=== PATIENT | female | born 1955 | race Caucasian/White ===

== ENCOUNTER 2019-12-28 20:24 | Observation (INO) | payer MEDICARE ==
[~2019-12-28] VITALS: Ht 152.4 cm; Wt 52.5 kg
[2019-12-28 20:44] LABS: BASO # 0.1 x10^3/uL (0.0-0.2); BASO % 1 % (0-3); EOS # 0.1 x10^3/uL (0.0-0.7); EOS % 1 % (0-3); HEMATOCRIT 26.5 % (36.0-47.0); HEMOGLOBIN 8.8 g/dL (12.0-15.5); LYMPH # 1.7 x10^3/uL (1.0-4.8); LYMPH % 16 % (24-48); MEAN CORPUSCULAR HEMOGLOBIN 28 pg (25-35); MEAN CORPUSCULAR HGB CONC 33 g/dL (31-37); MEAN CORPUSCULAR VOLUME 85 fL (79-100); MONO % 9 % (0-9); NEUT # 7.9 x10^3/uL (1.8-7.7); NEUT % 74 % (31-73); PLATELET COUNT 267 x10^3/uL (140-400); RED BLOOD COUNT 3.12 x10^6/uL (3.50-5.40); RED CELL DISTRIBUTION WIDTH 17.4 % (11.5-14.5); WHITE BLOOD COUNT 10.7 x10^3/uL (4.0-11.0)
[2019-12-28 20:50] LABS: CALCIUM 8.4 mg/dL (8.5-10.1); CREATININE 0.8 mg/dL (0.6-1.0); GFR 72.7; POTASSIUM 3.3 mmol/L (3.5-5.1)
--- NOTE | 2019-12-28 20:50 | PHYS DOC ---
General Adult EDM: Chief Complaint: CHEST PAIN HPI: HPI: The history was obtained from the patient. Patient is a 64-year-old female with PMH hypertension who presents with a chief complaint of chest pain. Patient states she is had intermittent chest pain throughout the day. States this episode started 1 hour prior to arrival and is been constant. States the pain is substernal in nature. States it is sharp and nonradiating. She states is made worse when she breathes in. She did take home nitroglycerin as well as nitroglycerin from EMS which did help. She does note some associated shortness of breath but denies any diaphoresis. Denies syncope. Notes a year ago she was hospitalized for chest pain [id number]. States heart catheterization was not performed. She has no heart disease in her mother and father at a young age. Denies any history of blood clot. Denies any swelling to the lower extremities. Denies fevers or cough. Denies known exposure to coronavirus. Does state occasionally she does get chest pressure with ambulation. No other complaints. Review of Systems: Review of Systems: Constitutional: Denies fever or chills. [] Eyes: Denies change in visual acuity. [] HENT: Denies nasal congestion or sore throat. [] Respiratory: Denies cough or shortness of breath. [] Cardiovascular: Positive for chest pain GI: Denies abdominal pain, nausea, vomiting, bloody stools or diarrhea. [] : Denies dysuria. [] Musculoskeletal: Denies back pain or joint pain. [] Integument: Denies rash. [] Neurologic: Denies headache, focal weakness or sensory changes. [] Endocrine: Denies polyuria or polydipsia. [] Lymphatic: Denies swollen glands. [] Psychiatric: Denies depression or anxiety. [] Heart Score: HEART Score for Chest Pain: HEART Score for Chest Pain Response (Comments) Value History Moderately Suspicious 1 ECG Nonspecific Repolarizatio 1 Age >45 - < 65 1 Risk Factors 1 or 2 Risk Factors 1 Troponin < Normal Limit 0 Total 4 Risk Factors: Risk Factors: DM, Current or recent (<one month) smoker, HTN, HLP, family history of CAD, obesity. Risk Scores: Score 0 - 3: 2.5% MACE over next 6 weeks - Discharge Home Score 4 - 6: 20.3% MACE over next 6 weeks - Admit for Clinical Observation Score 7 - 10: 72.7% MACE over next 6 weeks - Early Invasive Strategies Physical Exam: PE: Constitutional: Well developed, well nourished, no acute distress, non-toxic appearance. [] HENT: Normocephalic, atraumatic, bilateral external ears normal, oropharynx moist, no oral exudates, nose normal. [] Eyes: PERRLA, EOMI, conjunctiva normal, no discharge. [] Neck: Normal range of motion, no tenderness, supple, no stridor. [] Cardiovascular:Heart rate regular rhythm, no murmur [] Lungs & Thorax: Bilateral breath sounds clear to auscultation [] Abdomen: soft, no tenderness, no masses, no pulsatile masses. [] Skin: Warm, dry, no erythema, no rash. [] Back: No tenderness, no CVA tenderness. [] Extremities: No tenderness, no cyanosis, no clubbing, ROM intact, no edema. [] Neurologic: Alert and oriented X 3, normal motor function, normal sensory function, no focal deficits noted. [] Psychologic: Affect normal, judgement normal, mood normal. [] Current Patient Data: Labs: Laboratory Tests Test 12/28/19 20:33 White Blood Count 10.7 x10^3/uL (4.0-11.0) Red Blood Count 3.12 x10^6/uL (3.50-5.40) L Hemoglobin 8.8 g/dL (12.0-15.5) L Hematocrit 26.5 % (36.0-47.0) L Mean Corpuscular Volume 85 fL (79-100) Mean Corpuscular Hemoglobin 28 pg (25-35) Mean Corpuscular Hemoglobin Concent 33 g/dL (31-37) Red Cell Distribution Width 17.4 % (11.5-14.5) H Platelet Count 267 x10^3/uL (140-400) Neutrophils (%) (Auto) 74 % (31-73) H Lymphocytes (%) (Auto) 16 % (24-48) L Monocytes (%) (Auto) 9 % (0-9) Eosinophils (%) (Auto) 1 % (0-3) Basophils (%) (Auto) 1 % (0-3) Neutrophils # (Auto) 7.9 x10^3/uL (1.8-7.7) H Lymphocytes # (Auto) 1.7 x10^3/uL (1.0-4.8) Monocytes # (Auto) 1.0 x10^3/uL (0.0-1.1) Eosinophils # (Auto) 0.1 x10^3/uL (0.0-0.7) Basophils # (Auto) 0.1 x10^3/uL (0.0-0.2) Laboratory Tests 12/28/19 20:33 Vital Signs: Vital Signs Date Time Temp Pulse Resp B/P (MAP) Pulse Ox O2 Delivery O2 Flow Rate FiO2 12/28/19 20:25 98.6 94 14 113/66 (82) 96 Room Air 98.6 EKG: EKG: [] EKG consistent with normal sinus rhythm. Ventricular rate of 97 bpm. Bradley normal. Intervals normal. No acute ischemic changes noted. Radiology/Procedures: Radiology/Procedures: [facility] [address] [place], [place] [id number] IMAGING REPORT Signed PATIENT: MARIA GUADALUPE COTE LACCOUNT: [id number] : 1955 LOCATION: ER AGE: 64 SEX: F EXAM STATUS: REG ER ORD. PHYSICIAN: KAYE CARPIO DO REASON: CP. concern for PE PROCEDURE: CT ANGIOGRAPHY CHEST Exam: CT of chest with contrast INDICATION: Chest pain TECHNIQUE: Sequential axial images through the chest obtained following the administration of 90 mL of Isovue-370 IV contrast. Sagittal and coronal reformatted images were reconstructed from the axial data and reviewed. Comparisons: Chest x-ray same day FINDINGS: Visual is portions of the thyroid are unremarkable. No enlarged mediastinal lymph nodes are identified. Heart size is normal. No pericardial effusion. Thoracic aorta has a normal course and caliber. Pulmonary artery is not enlarged. No pulmonary embolus identified within the main, lobar or segmental pulmonary arteries. Airways are patent. No consolidation or pneumothorax. Tree-in-bud nodularity noted in the right upper lobe. Mild centrilobular emphysematous changes noted at the lung apices. No pleural effusion or thickening. Visualized upper abdomen is unremarkable. No suspicious osseous lesions or acute fractures. IMPRESSION: No pulmonary embolus identified within the main, lobar or segmental pulmonary arteries. Exposure: One or more of the following in the visualized dose reduction techniques were utilized for this examination: 1. Automated exposure control 2. Adjustment of the MA and/or KV according to patient size 3. Use of iterative of reconstructive technique Electronically signed by: Bertha Becker MD (12/28/2019 9:35 PM) [id number] DICTATED and SIGNED BY: BERTHA BECKER MD DATE: 12/28/192134 [] Course & Med Decision Making: Course & Med Decision Making Pertinent Labs and Imaging studies reviewed. (See chart for details) [] Patient is a 64-year-old female who presents with chief complaint of sudden onset chest pain that began 1 hour prior to arrival. Initial EKG without acute ischemic changes. She does note a history of chest pain approximate 1 year ago that was evaluated by cardiology [id number]. She states however she is never had a heart catheterization. CBC notable for hemoglobin of 8.8. No previous for comparison. She shows no signs of hemodynamic instability. Troponin negative. CT PE study negative. I am concerned the patient has a moderate risk heart score. I do feel she would benefit from hospitalization. Patient is agreeable to this. Her pain did get significant improvement with nitroglycerin administered by EMS. She was given fentanyl in the emergency department and has been chest pain-free. Appropriate for hospitalization at this time. Dragon Disclaimer: Dragon Disclaimer: This electronic medical record was generated, in whole or in part, using a voice recognition dictation system. Departure Departure Impression: Primary Impression: Chest pain Qualified Codes: R07.9 - Chest pain, unspecified Additional Impressions: Hypertension Qualified Codes: I10 - Essential (primary) hypertension Tobacco abuse Anemia Qualified Codes: D64.9 - Anemia, unspecified Disposition: ADMITTED INPATIENT Condition: STABLE Justicifation of Admission Dx: Justifications for Admission: Justification of Admission Dx: Yes KAYE CARPIO DO Dec 28, 2019 20:50
--- NOTE | 2019-12-28 20:57 | RAD ---
Exam: Chest one view INDICATION: Chest pain TECHNIQUE: Frontal view of the chest Comparisons: None FINDINGS: The cardiomediastinal silhouette and pulmonary vessels are within normal limits. The lung and pleural spaces are clear. IMPRESSION: No acute cardiopulmonary process. Electronically signed by: Vira Bernal MD (12/28/2019 8:55 PM) [id number]
[2019-12-28 20:59] LABS: ALBUMIN 3.2 g/dL (3.4-5.0); ALBUMIN/GLOBULIN RATIO 1.1 (1.0-1.7); TOTAL BILIRUBIN 0.1 mg/dL (0.2-1.0); TOTAL PROTEIN 6.1 g/dL (6.4-8.2)
[2019-12-28] MEDS ORDERED: IOHEXOL 350 MG/ML 100 ML VIAL. IV ONE (21:15)
[2019-12-28] MEDS ORDERED: CONTRAST GIVEN. MC PRN (21:15)
--- NOTE | 2019-12-28 21:37 | RAD ---
Exam: CT of chest with contrast INDICATION: Chest pain TECHNIQUE: Sequential axial images through the chest obtained following the administration of 90 mL of Isovue-370 IV contrast. Sagittal and coronal reformatted images were reconstructed from the axial data and reviewed. Comparisons: Chest x-ray same day FINDINGS: Visual is portions of the thyroid are unremarkable. No enlarged mediastinal lymph nodes are identified. Heart size is normal. No pericardial effusion. Thoracic aorta has a normal course and caliber. Pulmonary artery is not enlarged. No pulmonary embolus identified within the main, lobar or segmental pulmonary arteries. Airways are patent. No consolidation or pneumothorax. Tree-in-bud nodularity noted in the right upper lobe. Mild centrilobular emphysematous changes noted at the lung apices. No pleural effusion or thickening. Visualized upper abdomen is unremarkable. No suspicious osseous lesions or acute fractures. IMPRESSION: No pulmonary embolus identified within the main, lobar or segmental pulmonary arteries. Exposure: One or more of the following in the visualized dose reduction techniques were utilized for this examination: 1. Automated exposure control 2. Adjustment of the MA and/or KV according to patient size 3. Use of iterative of reconstructive technique Electronically signed by: Vira Bernal MD (12/28/2019 9:35 PM) [id number]
[2019-12-28] MEDS ORDERED: MORPHINE SULFATE 2 MG/ML VIAL. IV PRN (22:00)
[2019-12-28] MEDS ORDERED: fentaNYL PF VIAL 100 MCG/2 ML VIAL IVP ONE (22:00)
[2019-12-28] MEDS ORDERED: ONDANSETRON PF 4 MG/2 ML VIAL. IV PRN (22:00)
[2019-12-29 01:00] VITALS: BP 100/54
--- NOTE | 2019-12-29 01:02 | EKG ---
[facility] [address] [place] [address] Test Date: 2019-12-28 Test Time: 20:28:03 Pat Name: MARIA GUADALUPE COTE Department: Room: 261 1 Gender: F Sql Programmer Analyst: AADLGISA : 1955 Requested By: KAYE CARPIO Order Number: [id number] Reading MD: Efren Minaya MD Measurements Intervals [place] Rate: 97 P: 52 MT: 152 QRS: 67 QRSD: 86 T: 52 QT: 358 QTc: 459 Interpretive Statements SR EARLY RBBB Electronically Signed On 12-29-2019 10:23:40 CDT by Efren Minaya MD
[2019-12-29 01:15] LABS: BASO # 0.1 x10^3/uL (0.0-0.2); BASO % 1 % (0-3); EOS # 0.1 x10^3/uL (0.0-0.7); EOS % 1 % (0-3); HEMATOCRIT 29.3 % (36.0-47.0); HEMOGLOBIN 9.6 g/dL (12.0-15.5); LYMPH # 1.6 x10^3/uL (1.0-4.8); LYMPH % 16 % (24-48); MEAN CORPUSCULAR HEMOGLOBIN 28 pg (25-35); MEAN CORPUSCULAR HGB CONC 33 g/dL (31-37); MEAN CORPUSCULAR VOLUME 85 fL (79-100); MONO # 0.7 x10^3/uL (0.0-1.1); MONO % 7 % (0-9); NEUT # 7.5 x10^3/uL (1.8-7.7); NEUT % 75 % (31-73); PLATELET COUNT 263 x10^3/uL (140-400); RED BLOOD COUNT 3.43 x10^6/uL (3.50-5.40); RED CELL DISTRIBUTION WIDTH 17.5 % (11.5-14.5)
[2019-12-29] MEDS ORDERED: LYSI500T8 PO (01:20)
[2019-12-29 01:33] LABS: CALCIUM 8.4 mg/dL (8.5-10.1); CREATININE 0.8 mg/dL (0.6-1.0); GFR 72.7; POTASSIUM 3.6 mmol/L (3.5-5.1)
[2019-12-29] MEDS: ACETAMINOPHEN 325 MG TABLET. PO PRN ×2 (01:50→10:06)
[2019-12-29] MEDS ORDERED: DIPH50CA PO (02:24)
[2019-12-29 03:02] VITALS: BP 102/56
[2019-12-29 07:00] VITALS: BP 115/68
[2019-12-29] MEDS ORDERED: ONDANSETRON PF 4 MG/2 ML VIAL. IV PRN (07:15)
[2019-12-29] MEDS ORDERED: NITROGLYCERIN SUBLINGUAL 0.4 MG BOTTLE OF 25. SL PRN (07:15)
[2019-12-29] MEDS ORDERED: ASPIRIN 325 MG TABLET PO SCH (08:00)
--- NOTE | 2019-12-29 08:13 | PDOC1 ---
History and Physical Date of Admission Date of Admission DATE: 12/29/19 TIME: 08:13 Identification/Chief Complaint Chief Complaint Chest pain Source Source: Patient History of Present Illness History of Present Illness Patient 64-year-old female with past medical history of former alcohol abuse, stomach ulcer secondary to gastric bypass, presents with complaints of sudden onset substernal chest pain that began last night. Patient reports sharp chest pain, 5/10, that began 20 minutes after eating dinner consisting of fish sticks. Patient does note a history of "heart attack ", seen at a [facility] and treated with medical management. She denies any history of cardiac stent placement. Patient denies improvement in her symptoms with her home nitroglycerin last night. Patient currently denies any chest pain. States she is a former alcoholic and still drinks very infrequently, her last drink being a shot of alcohol with her granddaughter 3 days ago. She denies any shortness of breath or diaphoresis. Past Medical History Past Medical History Hypertension, COPD, GERD, stomach ulcers Past Surgical History Past Surgical History Gastric bypass, section, appendectomy, left cataract surgery Past Surgical History: Family History Family History Coronary artery disease Social History Smoke: 1 pack per day (Current every day smoker) ALCOHOL: occassional (Former alcoholic) Drugs: None Current Problem List Problem List Problems Medical Problems: (1) Anemia Status: Acute (2) Chest pain Status: Acute (3) Hypertension Status: Acute (4) Tobacco abuse Status: Acute Current Medications Current Medications Current Medications Iohexol (Omnipaque 350 Mg/ml) 90 ml 1X ONCE IV Last administered on 12/28/19at 21:15; Start 12/28/19 at 21:15; Stop 12/28/19 at 21:16; Status DC Info (CONTRAST GIVEN -- Rx MONITORING) 1 each PRN DAILY PRN MC SEE COMMENTS; Start 12/28/19 at 21:15; Stop 12/30/19 at 21:14 Fentanyl Citrate (Fentanyl 2ml Vial) 50 mcg 1X ONCE IVP Last administered on 12/28/19at 22:01; Start 12/28/19 at 22:00; Stop 12/28/19 at 22:07; Status DC Ondansetron HCl (Zofran) 4 mg PRN Q8HRS PRN IV NAUSEA/VOMITING Last administere d on 12/29/19at 01:50; Start 12/28/19 at 22:00; Stop 12/29/19 at 07:05; Status DC Morphine Sulfate (Morphine Sulfate) 2 mg PRN Q2HR PRN IV PAIN; Start 12/28/19 at 22:00 Acetaminophen (Tylenol) 650 mg PRN Q6HRS PRN PO HEADACHE Last administered on 12/29/19at 01:50; Start 12/29/19 at 01:45 Influenza Virus Vaccine Quadrival (Fluzone Quad Syringe) 0.5 ml ONCE ONCE VAX IM ; Start 12/29/19 at 09:00; Stop 12/29/19 at 09:01 Ondansetron HCl (Zofran) 4 mg PRN Q4HRS PRN IV NAUSEA/VOMITING; Start 12/29/19 at 07:15 Diphenhydramine HCl (Benadryl) 50 mg QHS PO ; Start 12/29/19 at 21:00 Non-Formulary Medication (Lysine (L-Lysine)) 1 tab DAILY PO ; Start 12/29/19 at 09:00; Status UNV Aspirin (Kemi Aspirin) 325 mg DAILYWBKFT PO ; Start 12/29/19 at 08:00 Nitroglycerin (Nitrostat) 0.4 mg PRN Q5MIN PRN SL CHEST PAIN; Start 12/29/19 at 07:15 Active Scripts Active Reported Diphenhydramine Hcl 50 Mg Capsule 1 Cap PO QHS L-Lysine (Lysine) 500 Mg Tablet 1 Tab PO DAILY 30 Days Allergies Allergies: Coded Allergies: acetaminophen (Verified Allergy, Unknown, 12/28/19) butalbital (Verified Allergy, Unknown, 12/28/19) caffeine (Verified Allergy, Unknown, 12/28/19) codeine (Verified Allergy, Unknown, 12/28/19) ketorolac (Verified Allergy, Unknown, 12/28/19) nifedipine (Verified Allergy, Unknown, 12/28/19) propranolol (Verified Allergy, Unknown, 12/28/19) ROS Review of System GENERAL: No history of weight change, weakness or fevers. SKIN: No bruising, hair changes or rashes. EYES: No blurred, double or loss of vision. NOSE AND THROAT: No history of nosebleeds, hoarseness or sore throat. HEART: Chest pain. Denies palpitations. LUNGS: Shortness of breath. Denies hemoptysis, wheezing or shortness of breath. GASTROINTESTINAL: Denies nausea, vomiting, abdominal pain. GENITOURINARY: Denies dysuria, frequency, urgency, hematuria. NEUROLOGIC: Denies history of numbness, tingling, tremor or weakness. PSYCHIATRIC: Denies anxiety, denies depression. ENDOCRINE: No history of heat or cold intolerance, polyuria or polydipsia. EXTREMITIES: Denies muscle weakness, joint pain, pain on walking or stiffness. Physical Exam Physical Exam General: Alert, Oriented X3, Cooperative, No acute distress HEENT: PERRLA, EOMI Lungs: Clear to auscultation, Normal air movement Heart: RRR, no murmurs Cardiovascular: S1, S2 Abdomen: Normal bowel sounds, Soft, No tenderness Extremities: No clubbing, No cyanosis Skin: No rashes, No significant lesion Neuro: Normal speech, Normal tone, Sensation intact Psych/Mental Status: Mental status NL, Mood NL Vitals Vitals Vital Signs Date Time Temp Pulse Resp B/P (MAP) Pulse Ox O2 Delivery O2 Flow Rate FiO2 12/29/19 03:02 98.1 105 19 102/56 (71) 98 Room Air 98.1 Labs Labs Laboratory Tests Test 12/28/19 20:33 12/29/19 00:58 White Blood Count 10.7 x10^3/uL (4.0-11.0) 10.0 x10^3/uL (4.0-11.0) Red Blood Count 3.12 x10^6/uL (3.50-5.40) 3.43 x10^6/uL (3.50-5.40) Hemoglobin 8.8 g/dL (12.0-15.5) 9.6 g/dL (12.0-15.5) Hematocrit 26.5 % (36.0-47.0) 29.3 % (36.0-47.0) Mean Corpuscular Volume 85 fL (79-100) 85 fL (79-100) Mean Corpuscular Hemoglobin 28 pg (25-35) 28 pg (25-35) Mean Corpuscular Hemoglobin Concent 33 g/dL (31-37) 33 g/dL (31-37) Red Cell Distribution Width 17.4 % (11.5-14.5) 17.5 % (11.5-14.5) Platelet Count 267 x10^3/uL (140-400) 263 x10^3/uL (140-400) Neutrophils (%) (Auto) 74 % (31-73) 75 % (31-73) Lymphocytes (%) (Auto) 16 % (24-48) 16 % (24-48) Monocytes (%) (Auto) 9 % (0-9) 7 % (0-9) Eosinophils (%) (Auto) 1 % (0-3) 1 % (0-3) Basophils (%) (Auto) 1 % (0-3) 1 % (0-3) Neutrophils # (Auto) 7.9 x10^3/uL (1.8-7.7) 7.5 x10^3/uL (1.8-7.7) Lymphocytes # (Auto) 1.7 x10^3/uL (1.0-4.8) 1.6 x10^3/uL (1.0-4.8) Monocytes # (Auto) 1.0 x10^3/uL (0.0-1.1) 0.7 x10^3/uL (0.0-1.1) Eosinophils # (Auto) 0.1 x10^3/uL (0.0-0.7) 0.1 x10^3/uL (0.0-0.7) Basophils # (Auto) 0.1 x10^3/uL (0.0-0.2) 0.1 x10^3/uL (0.0-0.2) Sodium Level 140 mmol/L (136-145) 140 mmol/L (136-145) Potassium Level 3.3 mmol/L (3.5-5.1) 3.6 mmol/L (3.5-5.1) Chloride Level 105 mmol/L (98-107) 106 mmol/L (98-107) Carbon Dioxide Level 24 mmol/L (21-32) 25 mmol/L (21-32) Anion Gap 11 (6-14) 9 (6-14) Blood Urea Nitrogen 11 mg/dL (7-20) 10 mg/dL (7-20) Creatinine 0.8 mg/dL (0.6-1.0) 0.8 mg/dL (0.6-1.0) Estimated GFR (Cockcroft-Gault) 72.7 72.7 BUN/Creatinine Ratio 14 (6-20) Glucose Level 95 mg/dL (70-99) 119 mg/dL (70-99) Calcium Level 8.4 mg/dL (8.5-10.1) 8.4 mg/dL (8.5-10.1) Total Bilirubin 0.1 mg/dL (0.2-1.0) Aspartate Amino Transf (AST/SGOT) 21 U/L (15-37) Alanine Aminotransferase (ALT/SGPT) 14 U/L (14-59) Alkaline Phosphatase 103 U/L (46-116) Troponin I Quantitative < 0.017 ng/mL (0.000-0.055) < 0.017 ng/mL (0.000-0.055) JT-Fxm-K-Type Natriuretic Peptide 230 pg/mL (0-124) Total Protein 6.1 g/dL (6.4-8.2) Albumin 3.2 g/dL (3.4-5.0) Albumin/Globulin Ratio 1.1 (1.0-1.7) Lipase 122 U/L (73-393) Magnesium Level 2.1 mg/dL (1.8-2.4) Laboratory Tests Test 12/28/19 20:33 12/29/19 00:58 White Blood Count 10.7 x10^3/uL (4.0-11.0) 10.0 x10^3/uL (4.0-11.0) Red Blood Count 3.12 x10^6/uL (3.50-5.40) 3.43 x10^6/uL (3.50-5.40) Hemoglobin 8.8 g/dL (12.0-15.5) 9.6 g/dL (12.0-15.5) Hematocrit 26.5 % (36.0-47.0) 29.3 % (36.0-47.0) Mean Corpuscular Volume 85 fL (79-100) 85 fL (79-100) Mean Corpuscular Hemoglobin 28 pg (25-35) 28 pg (25-35) Mean Corpuscular Hemoglobin Concent 33 g/dL (31-37) 33 g/dL (31-37) Red Cell Distribution Width 17.4 % (11.5-14.5) 17.5 % (11.5-14.5) Platelet Count 267 x10^3/uL (140-400) 263 x10^3/uL (140-400) Neutrophils (%) (Auto) 74 % (31-73) 75 % (31-73) Lymphocytes (%) (Auto) 16 % (24-48) 16 % (24-48) Monocytes (%) (Auto) 9 % (0-9) 7 % (0-9) Eosinophils (%) (Auto) 1 % (0-3) 1 % (0-3) Basophils (%) (Auto) 1 % (0-3) 1 % (0-3) Neutrophils # (Auto) 7.9 x10^3/uL (1.8-7.7) 7.5 x10^3/uL (1.8-7.7) Lymphocytes # (Auto) 1.7 x10^3/uL (1.0-4.8) 1.6 x10^3/uL (1.0-4.8) Monocytes # (Auto) 1.0 x10^3/uL (0.0-1.1) 0.7 x10^3/uL (0.0-1.1) Eosinophils # (Auto) 0.1 x10^3/uL (0.0-0.7) 0.1 x10^3/uL (0.0-0.7) Basophils # (Auto) 0.1 x10^3/uL (0.0-0.2) 0.1 x10^3/uL (0.0-0.2) Sodium Level 140 mmol/L (136-145) 140 mmol/L (136-145) Potassium Level 3.3 mmol/L (3.5-5.1) 3.6 mmol/L (3.5-5.1) Chloride Level 105 mmol/L (98-107) 106 mmol/L (98-107) Carbon Dioxide Level 24 mmol/L (21-32) 25 mmol/L (21-32) Anion Gap 11 (6-14) 9 (6-14) Blood Urea Nitrogen 11 mg/dL (7-20) 10 mg/dL (7-20) Creatinine 0.8 mg/dL (0.6-1.0) 0.8 mg/dL (0.6-1.0) Estimated GFR (Cockcroft-Gault) 72.7 72.7 BUN/Creatinine Ratio 14 (6-20) Glucose Level 95 mg/dL (70-99) 119 mg/dL (70-99) Calcium Level 8.4 mg/dL (8.5-10.1) 8.4 mg/dL (8.5-10.1) Total Bilirubin 0.1 mg/dL (0.2-1.0) Aspartate Amino Transf (AST/SGOT) 21 U/L (15-37) Alanine Aminotransferase (ALT/SGPT) 14 U/L (14-59) Alkaline Phosphatase 103 U/L (46-116) Troponin I Quantitative < 0.017 ng/mL (0.000-0.055) < 0.017 ng/mL (0.000-0.055) MW-Oqn-B-Type Natriuretic Peptide 230 pg/mL (0-124) Total Protein 6.1 g/dL (6.4-8.2) Albumin 3.2 g/dL (3.4-5.0) Albumin/Globulin Ratio 1.1 (1.0-1.7) Lipase 122 U/L (73-393) Magnesium Level 2.1 mg/dL (1.8-2.4) Images Images Exam: Chest one view INDICATION: Chest pain TECHNIQUE: Frontal view of the chest Comparisons: None FINDINGS: The cardiomediastinal silhouette and pulmonary vessels are within normal limits. The lung and pleural spaces are clear. IMPRESSION: No acute cardiopulmonary process. Exam: CT of chest with contrast INDICATION: Chest pain TECHNIQUE: Sequential axial images through the chest obtained following the administration of 90 mL of Isovue-370 IV contrast. Sagittal and coronal reformatted images were reconstructed from the axial data and reviewed. Comparisons: Chest x-ray same day FINDINGS: Visual is portions of the thyroid are unremarkable. No enlarged mediastinal lymph nodes are identified. Heart size is normal. No pericardial effusion. Thoracic aorta has a normal course and caliber. Pulmonary artery is not enlarged. No pulmonary embolus identified within the main, lobar or segmental pulmonary arteries. Airways are patent. No consolidation or pneumothorax. Tree-in-bud nodularity noted in the right upper lobe. Mild centrilobular emphysematous changes noted at the lung apices. No pleural effusion or thickening. Visualized upper abdomen is unremarkable. No suspicious osseous lesions or acute fractures. IMPRESSION: No pulmonary embolus identified within the main, lobar or segmental pulmonary arteries. VTE Prophylaxis Ordered VTE Prophylaxis Devices: Yes VTE Pharmacological Prophylaxi: No Assessment/Plan Assessment/Plan Chest pain ACS Plan: Trend troponins. Troponins x 2 undetectable. Echocardiogram showed ejection fraction of 50 to 55% with normal left ventricular wall motion. Suspect her pain was secondary to GERD or chronic pancreatic insufficiency. Recommend patient discharge with close PCP follow-up. Morphine and nitroglycerin as needed for pain. Chest x-ray unremarkable. CTA chest negative for PE. Discussed with cardiology. FEN - Cardiac diet PPX - compression devices FULL CODE Dispo - inpatient for above Justifications for Admission Other Justification SHANTA CROCKETT MD Dec 29, 2019 08:13
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
[2019-12-29] MEDS ORDERED: NON FORMULARY ITEM (Lysine (L-Lysine) 1 TAB) PO SCH (09:00)
[2019-12-29] MEDS ORDERED: FLU VACC QS 2020-21(6MOS+)/PF 0.5 ML SYRINGE. VAX IM ONE (09:00)
[2019-12-29] MEDS ORDERED: POTASSIUM CHLORIDE 20 MEQ TABLET.ER. PO ONE (09:45)
--- NOTE | 2019-12-29 09:47 | CARD ---
MR#: [id number] Date of Study: 12/29/2019 Ordering Physician: SHANTA CROCKETT, Referring Physician: SHANTA CROCKETT, Tech: Sofia Holguin RDCS APPROVED REPORT EXAM: Two-dimensional and M-mode echocardiogram with Doppler and color Doppler. Other Information Quality : Fair INDICATION Chest Pain 2D DIMENSIONS RVDd2.3 (2.9-3.5cm)Left Atrium(2D)2.3 (1.6-4.0cm) IVSd0.7 (0.7-1.1cm)Aortic Root(2D)2.8 (2.0-3.7cm) LVDd4.6 (3.9-5.9cm)LVOT Diameter2.0 (1.8-2.4cm) PWd0.7 (0.7-1.1cm)LVDs3.4 (2.5-4.0cm) FS (%) 25.4 %SV47.7 ml LVEF(%)50.2 (>50%) Aortic Valve AoV Peak Anton.149.1cm/sAoV VTI26.0cm AO Peak GR.8.9mmHgLVOT Peak Anton.106.8cm/s LVOT VTI 19.33cmAO Mean GR.4mmHg MARGARITA (VMAX)2.94zv6EAY (VTI)2.39cm2 AI P 1/2 Gcgo012px Mitral Valve MV E Ezpshgqz31.0cm/sMV DECEL [id number] MV A Fzfwfhqv82.6cm/sMV NSE64dp E/A Ratio1.0MVA (PHT)3.78cm2 TDI E/Lateral E'5.1E/Medial E'8.6 Tricuspid Valve TR P. Otzukijt635zh/sRAP SZCABRMQ4egGu TR Peak Gr.67vpSxJFIS86abBc Pulmonary Vein S1 Cgcggrzt57.7cm/sD2 Awettdef67.6cm/s LEFT VENTRICLE The left ventricle is normal size. There is normal left ventricular wall thickness. Left ventricle sy stolic function is low normal. The Ejection Fraction is 50-55%. There is normal LV segmental wall mot ion. The left ventricular diastolic function and filling is normal for age. RIGHT VENTRICLE The right ventricle is normal size. The right ventricular systolic function is normal. ATRIA The left atrium size is normal. The right atrium size is normal. The interatrial septum is intact wit h no evidence for an atrial septal defect or patent foramen ovale as noted on 2-D or Doppler imaging. AORTIC VALVE The aortic valve is calcified but opens well. Doppler and Color Flow revealed mild aortic regurgitati on. There is no significant aortic valvular stenosis. MITRAL VALVE The mitral valve is calcified but opens well. There is no evidence of mitral valve prolapse. There is no mitral valve stenosis. Doppler and Color-flow revealed trace mitral regurgitation. TRICUSPID VALVE The tricuspid valve is normal in structure and function. Doppler and Color Flow revealed physiologica l tricuspid regurgitation. The PA pressure was estimated at 32 mmHg. There is no tricuspid valve sten osis. PULMONIC VALVE The pulmonic valve is not well visualized. Doppler and Color Flow revealed no pulmonic valvular regur gitation. There is no pulmonic valvular stenosis. GREAT VESSELS The aortic root is normal in size. The ascending aorta is not well seen. The IVC is normal in size an d collapses >50% with inspiration. PERICARDIAL EFFUSION There is no evidence of significant pericardial effusion. Critical Notification Critical Value: No <Conclusion> Left ventricle systolic function is low normal. The Ejection Fraction is 50-55%. There is normal LV segmental wall motion. Doppler and Color Flow revealed mild aortic regurgitation. Signed by : Efren Minaya, Electronically Approved : 12/29/2019 09:46:49
[2019-12-29 10:28] LABS: CHOLESTEROL/HDL RATIO 2.9
--- NOTE | 2019-12-29 10:42 | PDOC3 ---
Discharge Summary Visit Information Date of Admission: Dec 29, 2019 Date of Discharge: Dec 29, 2019 Final Diagnosis Problems Medical Problems: (1) Anemia Status: Acute (2) Chest pain Status: Acute (3) Hypertension Status: Acute (4) Tobacco abuse Status: Acute Brief Hospital Course Allergies Allergies Coded Allergies Type Severity Reaction Last Updated Verified acetaminophen Allergy Unknown 12/28/19 Yes butalbital Allergy Unknown 12/28/19 Yes caffeine Allergy Unknown 12/28/19 Yes codeine Allergy Unknown 12/28/19 Yes ketorolac Allergy Unknown 12/28/19 Yes nifedipine Allergy Unknown 12/28/19 Yes propranolol Allergy Unknown 12/28/19 Yes Vital Signs Vital Signs Date Time Temp Pulse Resp B/P (MAP) Pulse Ox O2 Delivery O2 Flow Rate FiO2 12/29/19 03:02 98.1 105 19 102/56 (71) 98 Room Air 98.1 Lab Results Laboratory Tests Test 12/28/19 20:33 12/29/19 00:58 12/29/19 09:34 White Blood Count 10.7 x10^3/uL (4.0-11.0) 10.0 x10^3/uL (4.0-11.0) Red Blood Count 3.12 x10^6/uL (3.50-5.40) 3.43 x10^6/uL (3.50-5.40) Hemoglobin 8.8 g/dL (12.0-15.5) 9.6 g/dL (12.0-15.5) Hematocrit 26.5 % (36.0-47.0) 29.3 % (36.0-47.0) Mean Corpuscular Volume 85 fL (79-100) 85 fL (79-100) Mean Corpuscular Hemoglobin 28 pg (25-35) 28 pg (25-35) Mean Corpuscular Hemoglobin Concent 33 g/dL (31-37) 33 g/dL (31-37) Red Cell Distribution Width 17.4 % (11.5-14.5) 17.5 % (11.5-14.5) Platelet Count 267 x10^3/uL (140-400) 263 x10^3/uL (140-400) Neutrophils (%) (Auto) 74 % (31-73) 75 % (31-73) Lymphocytes (%) (Auto) 16 % (24-48) 16 % (24-48) Monocytes (%) (Auto) 9 % (0-9) 7 % (0-9) Eosinophils (%) (Auto) 1 % (0-3) 1 % (0-3) Basophils (%) (Auto) 1 % (0-3) 1 % (0-3) Neutrophils # (Auto) 7.9 x10^3/uL (1.8-7.7) 7.5 x10^3/uL (1.8-7.7) Lymphocytes # (Auto) 1.7 x10^3/uL (1.0-4.8) 1.6 x10^3/uL (1.0-4.8) Monocytes # (Auto) 1.0 x10^3/uL (0.0-1.1) 0.7 x10^3/uL (0.0-1.1) Eosinophils # (Auto) 0.1 x10^3/uL (0.0-0.7) 0.1 x10^3/uL (0.0-0.7) Basophils # (Auto) 0.1 x10^3/uL (0.0-0.2) 0.1 x10^3/uL (0.0-0.2) Sodium Level 140 mmol/L (136-145) 140 mmol/L (136-145) Potassium Level 3.3 mmol/L (3.5-5.1) 3.6 mmol/L (3.5-5.1) Chloride Level 105 mmol/L (98-107) 106 mmol/L (98-107) Carbon Dioxide Level 24 mmol/L (21-32) 25 mmol/L (21-32) Anion Gap 11 (6-14) 9 (6-14) Blood Urea Nitrogen 11 mg/dL (7-20) 10 mg/dL (7-20) Creatinine 0.8 mg/dL (0.6-1.0) 0.8 mg/dL (0.6-1.0) Estimated GFR (Cockcroft-Gault) 72.7 72.7 BUN/Creatinine Ratio 14 (6-20) Glucose Level 95 mg/dL (70-99) 119 mg/dL (70-99) Calcium Level 8.4 mg/dL (8.5-10.1) 8.4 mg/dL (8.5-10.1) Total Bilirubin 0.1 mg/dL (0.2-1.0) Aspartate Amino Transf (AST/SGOT) 21 U/L (15-37) Alanine Aminotransferase (ALT/SGPT) 14 U/L (14-59) Alkaline Phosphatase 103 U/L (46-116) Troponin I Quantitative < 0.017 ng/mL (0.000-0.055) < 0.017 ng/mL (0.000-0.055) < 0.017 ng/mL (0.000-0.055) FB-Ulo-W-Type Natriuretic Peptide 230 pg/mL (0-124) Total Protein 6.1 g/dL (6.4-8.2) Albumin 3.2 g/dL (3.4-5.0) Albumin/Globulin Ratio 1.1 (1.0-1.7) Lipase 122 U/L (73-393) Magnesium Level 2.1 mg/dL (1.8-2.4) Triglycerides Level 104 mg/dL (0-150) Cholesterol Level 149 mg/dL (0-200) LDL Cholesterol, Calculated 76 mg/dL (0-100) VLDL Cholesterol, Calculated 21 mg/dL (0-40) Non-HDL Cholesterol Calculated 97 mg/dL (0-129) HDL Cholesterol 52 mg/dL (40-60) Cholesterol/HDL Ratio 2.9 Thyroid Stimulating Hormone (TSH) 1.254 uIU/mL (0.358-3.74) Laboratory Tests Test 12/28/19 20:33 12/29/19 00:58 12/29/19 09:34 White Blood Count 10.7 x10^3/uL (4.0-11.0) 10.0 x10^3/uL (4.0-11.0) Red Blood Count 3.12 x10^6/uL (3.50-5.40) 3.43 x10^6/uL (3.50-5.40) Hemoglobin 8.8 g/dL (12.0-15.5) 9.6 g/dL (12.0-15.5) Hematocrit 26.5 % (36.0-47.0) 29.3 % (36.0-47.0) Mean Corpuscular Volume 85 fL (79-100) 85 fL (79-100) Mean Corpuscular Hemoglobin 28 pg (25-35) 28 pg (25-35) Mean Corpuscular Hemoglobin Concent 33 g/dL (31-37) 33 g/dL (31-37) Red Cell Distribution Width 17.4 % (11.5-14.5) 17.5 % (11.5-14.5) Platelet Count 267 x10^3/uL (140-400) 263 x10^3/uL (140-400) Neutrophils (%) (Auto) 74 % (31-73) 75 % (31-73) Lymphocytes (%) (Auto) 16 % (24-48) 16 % (24-48) Monocytes (%) (Auto) 9 % (0-9) 7 % (0-9) Eosinophils (%) (Auto) 1 % (0-3) 1 % (0-3) Basophils (%) (Auto) 1 % (0-3) 1 % (0-3) Neutrophils # (Auto) 7.9 x10^3/uL (1.8-7.7) 7.5 x10^3/uL (1.8-7.7) Lymphocytes # (Auto) 1.7 x10^3/uL (1.0-4.8) 1.6 x10^3/uL (1.0-4.8) Monocytes # (Auto) 1.0 x10^3/uL (0.0-1.1) 0.7 x10^3/uL (0.0-1.1) Eosinophils # (Auto) 0.1 x10^3/uL (0.0-0.7) 0.1 x10^3/uL (0.0-0.7) Basophils # (Auto) 0.1 x10^3/uL (0.0-0.2) 0.1 x10^3/uL (0.0-0.2) Sodium Level 140 mmol/L (136-145) 140 mmol/L (136-145) Potassium Level 3.3 mmol/L (3.5-5.1) 3.6 mmol/L (3.5-5.1) Chloride Level 105 mmol/L (98-107) 106 mmol/L (98-107) Carbon Dioxide Level 24 mmol/L (21-32) 25 mmol/L (21-32) Anion Gap 11 (6-14) 9 (6-14) Blood Urea Nitrogen 11 mg/dL (7-20) 10 mg/dL (7-20) Creatinine 0.8 mg/dL (0.6-1.0) 0.8 mg/dL (0.6-1.0) Estimated GFR (Cockcroft-Gault) 72.7 72.7 BUN/Creatinine Ratio 14 (6-20) Glucose Level 95 mg/dL (70-99) 119 mg/dL (70-99) Calcium Level 8.4 mg/dL (8.5-10.1) 8.4 mg/dL (8.5-10.1) Total Bilirubin 0.1 mg/dL (0.2-1.0) Aspartate Amino Transf (AST/SGOT) 21 U/L (15-37) Alanine Aminotransferase (ALT/SGPT) 14 U/L (14-59) Alkaline Phosphatase 103 U/L (46-116) Troponin I Quantitative < 0.017 ng/mL (0.000-0.055) < 0.017 ng/mL (0.000-0.055) < 0.017 ng/mL (0.000-0.055) HS-Cur-T-Type Natriuretic Peptide 230 pg/mL (0-124) Total Protein 6.1 g/dL (6.4-8.2) Albumin 3.2 g/dL (3.4-5.0) Albumin/Globulin Ratio 1.1 (1.0-1.7) Lipase 122 U/L (73-393) Magnesium Level 2.1 mg/dL (1.8-2.4) Triglycerides Level 104 mg/dL (0-150) Cholesterol Level 149 mg/dL (0-200) LDL Cholesterol, Calculated 76 mg/dL (0-100) VLDL Cholesterol, Calculated 21 mg/dL (0-40) Non-HDL Cholesterol Calculated 97 mg/dL (0-129) HDL Cholesterol 52 mg/dL (40-60) Cholesterol/HDL Ratio 2.9 Thyroid Stimulating Hormone (TSH) 1.254 uIU/mL (0.358-3.74) Brief Hospital Course Ms. Alvarez is a 64 old female who presented with chest pain. Troponins trended, and negative. Cardiology consulted. Obtained echocardiogram with normal ejection fraction and no left ventricular wall abnormality. Suspect symptoms are secondary to chronic pancreatic insufficiency or GERD. Recommended close PCP follow-up. Stable for discharge. Discharge Information Condition at Discharge: Stable Follow Up: Weeks Disposition/Orders: D/C to Home Scheduled Diphenhydramine Hcl (Diphenhydramine Hcl) 50 Mg Capsule, 1 CAP PO QHS for sleep aide, #30 Ref 1 (Reported) Entered as Reported by: KELLY SUAREZ on 12/29/19223 Last Action: Converted on 12/29/19705 by SUGAR RODRIGUES MD Lysine (L-Lysine) 500 Mg Tablet, 1 TAB PO DAILY for enzyme for 30 Days, #30 Ref 0 (Reported) Entered as Reported by: KELLY SUAREZ on 12/29/19119 Last Action: Converted on 12/29/19705 by SUGAR RODRIGUES MD Justicifation of Admission Dx: Justifications for Admission: Justification of Admission Dx: Yes SHANTA CROCKETT MD Dec 29, 2019 10:42
[2019-12-29 11:00] VITALS: BP_SYST 114; BP_SYST 120; BP_DIAS 66; BP_DIAS 72
--- NOTE | 2019-12-29 12:12 | NUR ---
SS following for discharge planning. SS reviewed pt chart and discussed with pt RN. Pt is from home and is currently on room air. Discharge order on the chart for home with self care.
[2019-12-29 15:00] VITALS: BP 120/72
--- NOTE | 2019-12-29 16:34 | NUR ---
Discharge Note: MARIA GUADALUPE COTE [address] Discharge instructions and discharge home medications reviewed with Patient and a copy given. All questions have been answered and understanding verbalized. The following instructions and handouts were given: follow up, diet, cp. records sent for from [facility]. Discontinued lines and drains: IV removed, no lines present at discharge. Patient discharged to home. left by wheelchair to family private vehicle.
[2019-12-29] MEDS ORDERED: diphenhydrAMINE HCL 25 MG CAPSULE PO SCH (21:00)
== END 2019-12-29 16:10 | disposition home or self-care (01) ==
LOC: ER 20:24 → 2 SOUTH 22:41 → INTOOBSV 22:41
PROVIDERS: ADMIT Internal Medicine; ATTEND Internal Medicine
DX: R07.2 Precordial pain (principal); I10 Essential (primary) hypertension; D64.9 Anemia, unspecified; F17.200 Nicotine dependence, unspecified, uncomplicated; J44.9 Chronic obstructive pulmonary disease, unspecified; K21.9 Gastro-esophageal reflux disease without esophagitis; Z90.710 Acquired absence of both cervix and uterus; Z90.49 Acquired absence of other specified parts of digestive tract; Z98.84 Bariatric surgery status; Z88.8 Allergy status to other drugs, medicaments and biological substances; Z23 Encounter for immunization
CPT/HCPCS: 36415; 71045; 71275; 80048; 80053; 80061; 83690; 83735; 83880; 84443; 84484; 85025; 86850; 86900; 86901; 90471; 90686; 93005; 93306; 96374; 96375; 99285; G0008; G0378; J2405; J3010; Q9967; G0379